=== PATIENT | female | born 2005 | race Caucasian/White ===

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

== ENCOUNTER 2025-01-02 01:54 | Emergency (ER) | payer OTHER ==
[~2025-01-02] VITALS: Ht 152.4 cm; Wt 86.6 kg
--- OUTSIDE RECORDS SUMMARY | 2025-01-02 02:01 | XMS ---
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 No recent Security Events currently on file CRITERIA MET - Group Notification - [facility] - 2 Visits in 30 Days CARE PROVIDERS -[facility] Dentist: Computer Help Desk Specialist Current [place] PHONE: [phone] -[place]- Dentist: Computer Help Desk Specialist Current [facility] PHONE: [phone] -[place]- Dentist: Computer Help Desk Specialist Current [facility] PHONE: [phone] ISIDRA SELLERS Physician Pump Installer Current PHONE: Unknown PEDIATRIC Clinic/Center: [facility] Current [facility] PHONE: [phone] LEE CHENG Classified Ad Clerk: Clinical Current PHONE: [phone] Otis has no Care Guidelines for this patient. [place] VISIT COUNT (12 MO.) 2 [facility] TOTAL 2 NOTE: Visits indicate total known visits. ED/UCC VISIT TRACKING (12 MO.) 01/02/2025 01:55 [facility] Emergency COMPLAINT: - EAR PAIN 12/08/2024 17:54 [facility] TYPE: Emergency COMPLAINT: - EAR PAIN INPATIENT VISIT TRACKING (12 MO.) 03/02/2024 16:00 [facility] COMPLAINT: - OB CHECK DIAGNOSES: - 38 weeks gestation of - Allergy status to other antibiotic agents - Allergy status to penicillin - First degree perineal laceration during delivery - Full-term premature rupture of membranes, onset of labor within 24 hours of rupture - Labor and delivery complicated by cord around neck, without compression, not applicable or unspecified - Nicotine dependence, other tobacco product, uncomplicated - Obstructed labor due to shoulder dystocia - Single live - Smoking (tobacco) complicating childbirth [id number]
[2025-01-02] MEDS ORDERED: CEPHALEXIN500 M1 PO (02:36)
[2025-01-02] MEDS ORDERED: NEOMYCIN/POLYMYXIN/HYDROCORT 10 ML HOME.PACK OTIC ONE (02:45)
[2025-01-02] MEDS ORDERED: CEPHALEXIN MONOHYDRATE 500 MG HOME.PACK PO ONE (02:45)
[2025-01-02 03:42] VITALS: BP 105/60
== END 2025-01-02 03:42 | disposition home or self-care (01) ==
LOC: ED 01:54
DX: H60.92 Unspecified otitis externa, left ear (principal); H66.92 Otitis media, unspecified, left ear; F17.200 Nicotine dependence, unspecified, uncomplicated; Z88.0 Allergy status to penicillin
CPT/HCPCS: 99282; A9270